=== PATIENT | female | born 1965 | race Caucasian/White ===

== ENCOUNTER 2023-03-05 03:55 | Inpatient (IN) | payer MEDICAID ==
[2023-03-05] MEDS ORDERED: Ondansetron 4 MG/2 ML SDV IVPUSH PRN (04:32)
[2023-03-05] MEDS ORDERED: Naloxone 0.4 MG/ML SDV IVPUSH PRN (04:35)
[2023-03-05] MEDS ORDERED: Morphine 2 MG/ML SYRINGE IVPUSH SCH (04:45)
[2023-03-05] MEDS ORDERED: Dextrose 5%-Lactated Ringers 1,000 ML IV SCH (04:45)
[2023-03-05] MEDS: Morphine 2 MG/ML SYRINGE IVPUSH PRN ×2 (04:50→07:13)
[2023-03-05] MEDS ORDERED: Neostigmine Methylsulfate 1 MG/ML 5 ML Syringe ONE (07:14)
[2023-03-05] MEDS ORDERED: Ondansetron 4 MG/2 ML SDV ONE (07:14)
[2023-03-05] MEDS ORDERED: Propofol 200 MG/20 ML SDV ONE (07:14)
[2023-03-05] MEDS ORDERED: Rocuronium 50 MG/5 ML Vial ONE (07:14)
[2023-03-05] MEDS ORDERED: Glycopyrrolate 0.2 MG/ML 5 ML MDV ONE (07:14)
[2023-03-05] MEDS ORDERED: Dexamethasone 4 MG/ML SDV ONE (07:14)
[2023-03-05] MEDS ORDERED: Succinylcholine 200 MG/10 ML MDV ONE (07:14)
[2023-03-05] MEDS ORDERED: fentaNYL 250 MCG/5 ML SDV ONE (07:16)
[2023-03-05] MEDS ORDERED: Ketamine 500 MG/5 ML MDV IV SCH ×3 (07:30→10:30)
[2023-03-05] MEDS ORDERED: Naloxone 0.4 MG/ML SDV IV PRN (08:00)
[2023-03-05] MEDS: Morphine PF 30 MG/30 ML PCA Vial IV PRN ×2 (08:03→21:07)
[2023-03-05] MEDS ORDERED: Bupivacaine 0.5% 50 ML MDV ONE (08:17)
[2023-03-05] MEDS ORDERED: Lidocaine 1% with EPINEPHrine 1:100,000 50 ML MDV ONE (08:17)
[2023-03-05] MEDS ORDERED: Meropenem 500 MG SDV ONE (08:17)
[2023-03-05] MEDS ORDERED: cefOXitin 2 GM in Sodium Chloride 0.9% 50 ML IV ONE (10:30)
[2023-03-05] MEDS ORDERED: Ketamine 15 MG in Sodium Chloride 0.9% 19.85 ML IV SCH (10:30)
[2023-03-05] MEDS ORDERED: fentaNYL 100 MCG/2 ML SDV ONE (11:09)
[2023-03-05] MEDS ORDERED: Sugammadex Sodium 200 MG/2 ML VIAL ONE (11:24)
[2023-03-05] MEDS ORDERED: Labetalol 20 MG/4 ML Syringe IVPUSH PRN ×2 (11:48→13:00)
[2023-03-05] MEDS ORDERED: hydrOXYzine HCL 100 MG/2 ML SDV IM PRN (13:00)
[2023-03-05] MEDS ORDERED: Acetaminophen 500 MG Tab PO PRN (13:00)
[2023-03-05] MEDS ORDERED: Albuterol/Ipratropium 3.0-0.5 MG/3 ML Neb Soln INH PRN (13:00)
[2023-03-05] MEDS ORDERED: diphenhydrAMINE 50 MG/ML SDV IVPUSH PRN (13:00)
[2023-03-05] MEDS ORDERED: Cyclobenzaprine 10 MG Tab PO PRN (13:00)
[2023-03-05] MEDS ORDERED: Metoclopramide 10 MG/2 ML SDV IV PRN (13:17)
[2023-03-05] MEDS: Acetaminophen 500 MG Tab PO SCH ×2 (14:17→22:38)
[2023-03-05] MEDS ORDERED: Pantoprazole 40 MG Vial IVPUSH SCH (15:00)
[2023-03-05] MEDS: Albuterol/Ipratropium 3.0-0.5 MG/3 ML Neb Soln INH SCH ×2 (15:19→20:53)
[2023-03-05] MEDS: MVI, Adult with Vitamin K 10 ML, Thiamine 200 MG, Zinc/Copper/Manganese/Selenium 1 ML i... IV SCH ×4 (16:05)
[2023-03-05] MEDS: cefOXitin 2 GM in Sodium Chloride 0.9% 50 ML IV SCH ×2 (16:06→22:37)
[2023-03-05] MEDS: Ondansetron 4 MG/2 ML SDV IVPUSH PRN ×2 (16:06→20:49)
[2023-03-05] MEDS ORDERED: Scopolamine 1.5 MG Transdermal Patch TRDERM PRN (22:31)
[2023-03-05] MEDS: Dextrose 5%-Lactated Ringers 1,000 ML IV SCH (22:36)
[2023-03-06] MEDS: cefOXitin 2 GM in Sodium Chloride 0.9% 50 ML IV SCH (04:22)
[2023-03-06] MEDS: Dextrose 5%-Lactated Ringers 1,000 ML IV SCH ×2 (04:25→08:16)
[2023-03-06 05:20] LABS: BASOPHILS PERCENT AUTO 0.3 % (0.1-1.3); HEMATOCRIT 26.4 % (34.3-46.0); HEMOGLOBIN 8.1 g/dL (11.2-15.5); IMMATURE GRAN PERCENT AUTO 0.1 % (0.0-0.7); LYMPHOCYTES ABSOLUTE AUTO 1.34 K/uL (0.8-3.3); LYMPHOCYTES PERCENT AUTO 17.1 % (11.4-47.7); MEAN CORPUSCULAR HEMOGLOBIN 21.5 pg (31.6-35.5); MEAN CORPUSCULAR HGB CONC 30.7 g/dL (31.6-35.5); MEAN CORPUSCULAR VOLUME 70.2 fL (81.4-99.0); MONOCYTES PERCENT AUTO 10.2 % (3.3-12.6); NEUTROPHILS ABSOLUTE AUTO 5.68 K/uL (1.0-7.6); NEUTROPHILS PERCENT AUTO 72.3 % (40.0-78.1); PLATELET COUNT,PLT 194 K/uL (130-375); RED BLOOD CELL COUNT 3.76 M/uL (3.77-5.24); WHITE BLOOD CELL COUNT,WBC 7.9 K/uL (3.2-11.0)
[2023-03-06 05:26] LABS: BASOPHILS ABSOLUTE AUTO 0.02 K/uL (0.00-0.10); IMMATURE GRAN ABSOLUTE AUTO 0.01 K/uL (0.00-0.23)
[2023-03-06] MEDS: Acetaminophen 500 MG Tab PO SCH ×3 (05:48→21:54)
[2023-03-06 06:01] LABS: A/G RATIO 0.7 (1.2-2.2); ALANINE AMINOTRANSFERASE,ALT 76 U/L (12-78); ALBUMIN 3.1 g/dL (3.4-5.0); ALKALINE PHOSPHATASE 322 U/L (46-116); ASPARTATE AMNIOTRANSFERASE,AST 123 U/L (15-37); BILIRUBIN TOTAL 1.9 mg/dL (0.2-1.0); BLOOD UREA NITROGEN,BUN 9 mg/dL (7-18); CALCIUM 9.9 mg/dL (8.5-10.1); CARBON DIOXIDE,CO2 28 mmol/L (21-32); CHLORIDE,CL 95 mmol/L (100-108); CREATININE 0.7 mg/dL (0.6-1.0); EST CRCL DRUG DOSING (CG) 71.82 mL/min; ESTIMATED GFR 102 mL/min (>60); FERRITIN 49 ng/ml (8-388); GLUCOSE RANDOM 98 mg/dL (74-106); MAGNESIUM 2.4 mg/dL (1.8-2.4); PHOSPHORUS 2.7 mg/dL (2.5-4.9); POTASSIUM,K 3.2 mmol/L (3.6-5.2); PRO B-TYPE NATRIUR PEPT,BNPPRO 258 pg/mL (5-125); PROTEIN TOTAL,TP 7.7 g/dL (6.4-8.2); SODIUM,NA 132 mmol/L (140-148)
[2023-03-06 06:03] LABS: ANION GAP 12.2 mmol/L (5.0-14.0)
[2023-03-06] MEDS: Albuterol/Ipratropium 3.0-0.5 MG/3 ML Neb Soln INH SCH ×4 (07:17→20:51)
[2023-03-06] MEDS ORDERED: Ondansetron 4 MG Tab.DIS PO PRN (07:28)
[2023-03-06] MEDS ORDERED: Dextrose 5%-Lactated Ringers 1,000 ML IV SCH (07:30)
[2023-03-06] MEDS: Potassium Chloride 10 MEQ in Premix Bag 1 BAG IV SCH ×6 (08:16→15:28)
[2023-03-06] MEDS: Bisacodyl 5 MG Tab PO SCH ×2 (08:26→20:47)
[2023-03-06] MEDS: Docusate Sodium 100 MG Cap PO SCH ×2 (08:26→20:47)
[2023-03-06] MEDS: Pantoprazole 40 MG Tab.CR PO SCH (12:08)
[2023-03-06] MEDS: Morphine PF 30 MG/30 ML PCA Vial IV PRN (12:27)
[2023-03-06] MEDS: MVI, Adult with Vitamin K 10 ML, Thiamine 200 MG, Zinc/Copper/Manganese/Selenium 1 ML i... IV SCH ×4 (16:36)
[2023-03-07] MEDS: Dextrose 5%-Lactated Ringers 1,000 ML IV SCH ×2 (02:16→13:39)
[2023-03-07 05:01] LABS: HEMATOCRIT 30.2 % (34.3-46.0); HEMOGLOBIN 9.4 g/dL (11.2-15.5); MEAN CORPUSCULAR HEMOGLOBIN 23.7 pg (31.6-35.5); MEAN CORPUSCULAR HGB CONC 31.1 g/dL (31.6-35.5); MEAN CORPUSCULAR VOLUME 76.3 fL (81.4-99.0); RED BLOOD CELL COUNT 3.96 M/uL (3.77-5.24); WHITE BLOOD CELL COUNT,WBC 4.3 K/uL (3.2-11.0)
[2023-03-07] MEDS: Acetaminophen 500 MG Tab PO SCH ×3 (05:26→21:18)
[2023-03-07 05:30] LABS: A/G RATIO 0.6 (1.2-2.2); ALANINE AMINOTRANSFERASE,ALT 61 U/L (12-78); ALBUMIN 2.7 g/dL (3.4-5.0); ALKALINE PHOSPHATASE 272 U/L (46-116); ASPARTATE AMNIOTRANSFERASE,AST 91 U/L (15-37); BILIRUBIN TOTAL 2.3 mg/dL (0.2-1.0); BLOOD UREA NITROGEN,BUN 5 mg/dL (7-18); CALCIUM 9.4 mg/dL (8.5-10.1); CARBON DIOXIDE,CO2 28 mmol/L (21-32); CHLORIDE,CL 99 mmol/L (100-108); CREATININE 0.6 mg/dL (0.6-1.0); EST CRCL DRUG DOSING (CG) 83.79 mL/min; ESTIMATED GFR 106 mL/min (>60); GLUCOSE RANDOM 93 mg/dL (74-106); MAGNESIUM 1.9 mg/dL (1.8-2.4); PHOSPHORUS 2.3 mg/dL (2.5-4.9); POTASSIUM,K 3.4 mmol/L (3.6-5.2); PROTEIN TOTAL,TP 7.3 g/dL (6.4-8.2); SODIUM,NA 134 mmol/L (140-148)
[2023-03-07 06:01] LABS: ANION GAP 10.4 mmol/L (5.0-14.0)
[2023-03-07] MEDS ORDERED: Potassium Phosphates 3 mMole/ML 15 ML SDV IV ONE (06:48)
[2023-03-07] MEDS: Albuterol/Ipratropium 3.0-0.5 MG/3 ML Neb Soln INH SCH ×4 (06:57→21:10)
[2023-03-07] MEDS: Pantoprazole 40 MG Tab.CR PO SCH (07:33)
[2023-03-07] MEDS: oxyCODONE 5 MG Tab PO PRN ×2 (07:33→13:38)
[2023-03-07] MEDS: Potassium Phos in 0.9 % NaCl 15 MMOL in Premix Bag 1 BAG IV SCH ×6 (08:38→12:53)
[2023-03-07] MEDS: Docusate Sodium 100 MG Cap PO SCH ×2 (08:39→21:17)
[2023-03-07] MEDS: Bisacodyl 5 MG Tab PO SCH ×2 (08:39→21:18)
[2023-03-07] MEDS ORDERED: Cyanocobalamin (Vitamin B12) 1,000 MCG/ML SDV IM ONE (09:00)
[2023-03-07] MEDS ORDERED: diphenhydrAMINE 25 MG Cap PO PRN (09:23)
[2023-03-08] MEDS: oxyCODONE 5 MG Tab PO PRN ×4 (01:19→22:07)
[2023-03-08 04:33] LABS: HEMATOCRIT 28.4 % (34.3-46.0); HEMOGLOBIN 9.2 g/dL (11.2-15.5); MEAN CORPUSCULAR HGB CONC 32.4 g/dL (31.6-35.5); MEAN CORPUSCULAR VOLUME 74.2 fL (81.4-99.0); RED BLOOD CELL COUNT 3.83 M/uL (3.77-5.24)
[2023-03-08 04:54] LABS: A/G RATIO 0.7 (1.2-2.2); ALANINE AMINOTRANSFERASE,ALT 54 U/L (12-78); ALBUMIN 2.8 g/dL (3.4-5.0); ALKALINE PHOSPHATASE 269 U/L (46-116); ASPARTATE AMNIOTRANSFERASE,AST 74 U/L (15-37); BILIRUBIN TOTAL 1.9 mg/dL (0.2-1.0); BLOOD UREA NITROGEN,BUN 6 mg/dL (7-18); CALCIUM 9.5 mg/dL (8.5-10.1); CARBON DIOXIDE,CO2 28 mmol/L (21-32); CHLORIDE,CL 100 mmol/L (100-108); CREATININE 0.6 mg/dL (0.6-1.0); EST CRCL DRUG DOSING (CG) 83.79 mL/min; ESTIMATED GFR 106 mL/min (>60); GLUCOSE RANDOM 83 mg/dL (74-106); MAGNESIUM 1.9 mg/dL (1.8-2.4); PHOSPHORUS 3.6 mg/dL (2.5-4.9); POTASSIUM,K 3.7 mmol/L (3.6-5.2); PROTEIN TOTAL,TP 6.8 g/dL (6.4-8.2); SODIUM,NA 135 mmol/L (140-148)
[2023-03-08 04:59] LABS: ANION GAP 10.7 mmol/L (5.0-14.0)
[2023-03-08] MEDS: Acetaminophen 500 MG Tab PO SCH ×3 (06:00→21:55)
[2023-03-08] MEDS: Albuterol/Ipratropium 3.0-0.5 MG/3 ML Neb Soln INH SCH ×5 (07:35→21:56)
[2023-03-08] MEDS: Bisacodyl 5 MG Tab PO SCH ×2 (08:41→20:06)
[2023-03-08] MEDS: Furosemide 20 MG Tab PO SCH ×2 (08:41→14:20)
[2023-03-08] MEDS: Docusate Sodium 100 MG Cap PO SCH ×2 (08:41→20:06)
[2023-03-08] MEDS: Bisacodyl 10 MG Supp RECTAL SCH ×2 (08:42→20:06)
[2023-03-08] MEDS: Pantoprazole 40 MG Tab.CR PO SCH (08:42)
[2023-03-08] MEDS ORDERED: Potassium Chloride 20 MEQ Tab.ER PO ONE (09:00)
[2023-03-08] MEDS: Cyclobenzaprine 10 MG Tab PO SCH ×2 (11:35→17:34)
[2023-03-09] MEDS: Cyclobenzaprine 10 MG Tab PO SCH ×2 (02:25→09:35)
[2023-03-09 04:39] LABS: HEMATOCRIT 30.5 % (34.3-46.0); HEMOGLOBIN 9.8 g/dL (11.2-15.5); MEAN CORPUSCULAR HEMOGLOBIN 23.5 pg (31.6-35.5); MEAN CORPUSCULAR HGB CONC 32.1 g/dL (31.6-35.5); MEAN CORPUSCULAR VOLUME 73.1 fL (81.4-99.0); RED BLOOD CELL COUNT 4.17 M/uL (3.77-5.24); WHITE BLOOD CELL COUNT,WBC 3.2 K/uL (3.2-11.0)
[2023-03-09 05:02] LABS: A/G RATIO 0.6 (1.2-2.2); ALANINE AMINOTRANSFERASE,ALT 61 U/L (12-78); ALBUMIN 2.9 g/dL (3.4-5.0); ALKALINE PHOSPHATASE 305 U/L (46-116); ASPARTATE AMNIOTRANSFERASE,AST 93 U/L (15-37); BILIRUBIN TOTAL 1.9 mg/dL (0.2-1.0); BLOOD UREA NITROGEN,BUN 6 mg/dL (7-18); CALCIUM 9.9 mg/dL (8.5-10.1); CARBON DIOXIDE,CO2 31 mmol/L (21-32); CHLORIDE,CL 97 mmol/L (100-108); CREATININE 0.6 mg/dL (0.6-1.0); EST CRCL DRUG DOSING (CG) 83.79 mL/min; ESTIMATED GFR 106 mL/min (>60); GLUCOSE RANDOM 80 mg/dL (74-106); MAGNESIUM 1.7 mg/dL (1.8-2.4); POTASSIUM,K 3.4 mmol/L (3.6-5.2); PROTEIN TOTAL,TP 7.4 g/dL (6.4-8.2); SODIUM,NA 135 mmol/L (140-148)
[2023-03-09 05:05] LABS: ANION GAP 10.4 mmol/L (5.0-14.0)
[2023-03-09 06:09] VITALS: PULSE 78
[2023-03-09] MEDS: oxyCODONE 5 MG Tab PO PRN (06:37)
[2023-03-09] MEDS: Acetaminophen 500 MG Tab PO SCH (06:37)
[2023-03-09] MEDS: Albuterol/Ipratropium 3.0-0.5 MG/3 ML Neb Soln INH SCH ×2 (06:58→10:46)
[2023-03-09] MEDS: Pantoprazole 40 MG Tab.CR PO SCH (09:35)
[2023-03-09] MEDS: Docusate Sodium 100 MG Cap PO SCH (09:35)
[2023-03-09] MEDS: Bisacodyl 5 MG Tab PO SCH (09:35)
[2023-03-09] MEDS: Bisacodyl 10 MG Supp RECTAL SCH (09:36)
[2023-03-09] MEDS: Furosemide 20 MG Tab PO SCH (09:43)
[2023-03-09 11:44] VITALS: BP 136/85
== END 2023-03-09 14:15 | disposition home or self-care (01) | DRG 330 ==
LOC: JP.MS 03:55
PROVIDERS: ADMIT Surgery; ATTEND Surgery
PROC: 0DS80ZZ Reposition Small Intestine, Open Approach (ICD-10-PCS; principal; 2023-03-05)
PROC: 0FD03ZX Extraction of Liver, Percutaneous Approach, Diagnostic (ICD-10-PCS; 2023-03-05)
PROC: 0DQ80ZZ Repair Small Intestine, Open Approach (ICD-10-PCS; 2023-03-05)
PROC: 0WQF0ZZ Repair Abdominal Wall, Open Approach (ICD-10-PCS; 2023-03-05)
PROC: 3E0M05Z Introduction of Adhesion Barrier into Peritoneal Cavity, Open Approach (ICD-10-PCS; 2023-03-05)
DX: K56.2 Volvulus (principal); K43.0 Incisional hernia with obstruction, without gangrene; K56.600 Partial intestinal obstruction, unspecified as to cause; E53.8 Deficiency of other specified B group vitamins; M79.7 Fibromyalgia; I10 Essential (primary) hypertension; F32.A Depression, unspecified; F41.0 Panic disorder [episodic paroxysmal anxiety]; K59.09 Other constipation; G89.29 Other chronic pain; M54.9 Dorsalgia, unspecified; G43.909 Migraine, unspecified, not intractable, without status migrainosus; F41.9 Anxiety disorder, unspecified; Z98.51 Tubal ligation status; Z98.890 Other specified postprocedural states; Z87.891 Personal history of nicotine dependence; Z88.8 Allergy status to other drugs, medicaments and biological substances; Z98.84 Bariatric surgery status; Z88.0 Allergy status to penicillin; Z79.899 Other long term (current) drug therapy
CPT/HCPCS: 36415; 36430; 80053; 82728; 83735; 83880; 84100; 85025; 85027; 86850; 86900; 86901; 86920; 86922; 88302; 88307; 88313; 94640; A9270-GY; C9113; J0171; J0330; J0456; J0694; J1100; J2020; J2185; J2270; J2274; J2405; J2704; J2710; J2795; J3010; J3411; J3420; J3480; J3490; J7121; J7620; P9016; U0002